=== PATIENT | female | born 1960 | race Caucasian/White ===

== ENCOUNTER 2018-08-05 10:00 | Outpatient (RCR) ==
[2016-04-17 17:40] VITALS: BMI 41.5
== END 2018-08-15 23:59 ==
PROVIDERS: ATTEND Orthopaedic Surgery
DX: S52.502D Unspecified fracture of the lower end of left radius, subsequent encounter for closed fracture with routine healing (principal); M25.532 Pain in left wrist; M25.632 Stiffness of left wrist, not elsewhere classified; R53.1 Weakness; M25.432 Effusion, left wrist; Z98.890 Other specified postprocedural states

== ENCOUNTER 2018-09-08 08:00 | Outpatient (RCR) ==
[2016-04-17 17:40] VITALS: BMI 41.5
--- NOTE | 2018-08-24 11:49 | RS.OPPTEV2 ---
Date of Note: 08/23/18 Visit #: 1 Number of visits approved by Insurance: n/a Date of Evaluation: 08/23/18 Payer Source: MEDICARE Surgery Performed?: No Treatment Diagnosis: low back pain with radiculopathy History of Condition/Mechanism of Injury:: pt states that she has had a long hx of LBP which began in 2007. Prior Level of Function.....Patient was independent with: Work/Vocation, Caregiving, Ambulation/Mobility, Community Integration/Access Functional Limitations: Sleep, Lifting, Carrying, Standing, Bending, Squatting, Ambulation, Community Access/Integration Current Subjective/complaints:: pt states that she wants to avoid surgery on her back if at all possible. She reports she had an exacerbation of the LBP in Jun 2018 and is hurting pretty much constantly. Treatment Side (optional): N/A *Precautions: no electrical modalities due to h/o breast CA Medical History Medical History: Arthritis, Cancer (breast) Medical History Comments:: fibromyalgia Surgical History: Knee Replacement (BTKR), Cervical Spine (C6-7 fusion), Cholecystectomy, Hysterectomy, Mastectomy (Bilateral) Surgical History Comments:: Bilateral breast mastectomies Smoking Status: Never smoker Hx Home Medications: Zanaflex, Cymbalta,synthroid, gabapentin Patient's Goals: decrease LBP Pain Assessment - Pain Description Pain Location: lumbar area radiating into BLE to knees. Pain Description: Burning, Radiating, Aching Current Pain Intensity: 4-5/10 Worst Pain Intensity: 8/10 Functional Outcome Measure Oswestry LBP: 27 - G Codes & Severity Modifier G Codes & Modifier: n/a Source of G Code score: n/a Observation - Observation Inspection: pt with tightness in R piriformis Posture: Forward Head, Rounded Shoulders, Decreased Lumbar Lordosis Gait - Gait Pattern General Gait Pattern Observation: No Deviations/Normal General Range of Motion: WFL's except R wrist limited. Muscle Strength: LUE 5/5, RUE shld flex 5/5, elbow flex/ext 4/5, wrist limited. BLE hip flex 4+/5, knee flex/ext 5/5, ankle DF/PF 5/5 - ROM Lumbar Flexion: Hand reach to patellae Sidebending to Left: Reach to Lateral Joint Line Sidebending to Right: Reach to Lateral Joint Line Lumbar Spine ROM Limitations: Soft Tissue Tightness, Muscle Weakness, Pain Comments: pt with pain with flex as well as sidebending worse on L, extension decreases pain - Strength Trunk Extension: 4 Good Trunk Flexion: 4- Good- Trunk Lateral Flexion: 4- Good- Trunk Rotation: 4- Good- - Special Tests SLR Test: Positive Left, Positive Right Seated Dural Stretch Test: Positive Left, Positive Right SI Joint Compression: Positive Palpation Palpation Findings: Tenderness, Trigger Point, Muscle Guarding Comments:: pt with tenderness to palpation in lumbosacral area with trigger point and muscle guarding noted in area of R SI joint Sensation - Sensation Right Upper Extremity: Intact/Normal Left Upper Extremity: Intact/Normal Right Lower Extremity: Impaired Left Lower Extremity: Impaired Comments: pt reports burning and pain to B knees Balance - Sitting Balance Static Sitting Balance: Normal Dynamic Sitting Balance: Normal - Standing Balance Static Standing Balance: Normal Dynamic Standing Balance: Normal - Heat/Cryotherapy Treatment: Hot Pack Comments:: lumbar area Interventions - Exercise/Activities/Manual Therapy Exercises/Activities: pt performed pelvic tilts, prone on elbows, piriformis stretch, isometric hip add, standing lumbar ext. Total minutes of Exercise: 16 Manual Therapy: n/a HOME EXERCISE PROGRAM: pt given written HEP including putty, wrist flex/ext, pronation /supination, Passive stretching, stress ball, rubber band resisted finger extension. - Charges Timed Code Treatment Minutes: 52 Total Treatment Time: 59 Procedures billed for this date of service:: eval med, ex EVALUATION COMPLEXITY LEVEL EVALUATION COMPLEXITY LEVEL: HISTORY: Medium (fibromyalgia, back pain, OA, CA, ) , EXAM OF BODY SYSTEMS: Medium (pain, strength, ROM), CLINICAL PRESENTATION: Medium, CLINICAL DECISION MAKING: Medium Assessment Assessment: pt presents with LBP especially in area of R SI. pt with radicular symptoms BLE to knees which are decreased by lying in prone position. pt with muscle tightness noted in R piriformis. Patient Education: Home Exercise Program, Education of Plan of Care Rehab Potential: Good Short Term Goals Goal #1: pt independent with initial HEP Goal to be met by: 09/13/18 Goal #2: pt with decreased pain rated at <4/10 Goal to be met by: 09/13/18 Goal #3: R piriformis flexibility improved to equal to L Goal to be met by: 09/13/18 Goal #4: pt report decrease in frequency of radicular symptoms. Goal to be met by: 09/13/18 Longterm Goals Goal #1: Improvement in Oswestry score to <20 Goal to be met by: 10/04/18 Goal #2: Score on UE functional score >55 Goal to be met by: 10/04/18 Goal #3: pt report decreased LBP<3/10 Goal to be met by: 10/04/18 Goal #4: pt with reports of radicular symptoms less often than daily Goal to be met by: 10/04/18 Plan - Treatment to be Provided Procedures: Therapeutic Exercises, Manual Therapy, Massage, Patient Education Modalities: Cryotherapy, Hot Packs, Mechanical Traction - Treatment Plan Frequency: 2-3x a week Duration: 6 weeks Dates of Longterm Goals: 10/04/18 Expiration date of current Insurance Approval:: n/a - Treatment Code (1) Low back pain Code(s): M54.5 - LOW BACK PAIN Qualifiers: Chronicity: chronic Back pain laterality: bilateral Sciatica presence: with sciatica Sciatica laterality: bilateral sciatica Qualified Code(s): M54.42 - Lumbago with sciatica, left side; M54.41 - Lumbago with sciatica, right side; G89.29 - Other chronic pain (2) Radiculopathy of lumbar region Code(s): M54.16 - RADICULOPATHY, LUMBAR REGION (3) Muscle tightness Code(s): M62.89 - OTHER SPECIFIED DISORDERS OF MUSCLE (4) Weakness Code(s): R53.1 - WEAKNESS
--- NOTE | 2018-08-25 09:16 | RS.OPPTDN ---
Subjective Date of Note: 08/25/18 Visit #: 2 Number of visits approved by Insurance: NA Date of Evaluation: 08/23/18 Payer Source: MEDICARE Treatment Diagnosis: low back pain with radiculopathy Current Subjective/complaints:: Patient reports moderate pain , currently, radiating into both LE"s. *Precautions: no electrical modalities due to h/o breast CA Pain Assessment - Pain Description Pain Location: lumbar,both LE's Pain Description: Radiating, Dull, Aching Current Pain Intensity: 4-5/10 - Heat/Cryotherapy Treatment: Hot Pack (20 mins. prior to exercises) Interventions - Exercise/Activities/Manual Therapy Exercises/Activities: 35 mins. total pelvic tilts, SKTC,DKTC,piriformis stretches,LTR in hooklying,90/90 hamstring stretches. Total minutes of Exercise: 35 Manual Therapy: n/a Total minutes of Manual Therapy: 0 HOME EXERCISE PROGRAM: pelvic tilts,prone on elbows,SKTC,DKTC,piriformis stretches,lower trunk rotation in hooklying. - Charges Timed Code Treatment Minutes: 35 Total Treatment Time: 55 Procedures billed for this date of service:: hp,ex 2 Assessment: Patient has good hamstring extensibility bilaterally,moderate R piriformis tightness present,reports relief after exercises today.She is attentive to recommendations regarding her care. Patient Education: Education of diagnosis, Body/Joint mechanics, Home Exercise Program, Home Safety, Activity Modification, Education of Plan of Care Patient demonstrates compliance with HEP?: Yes Short Term Goals Goal #1: pt independent with initial HEP Goal to be met by: 09/13/18 Progress towards Goal:: Progressing Goal #2: pt with decreased pain rated at <4/10 Goal to be met by: 09/13/18 Goal #3: R piriformis flexibility improved to equal to L Goal to be met by: 09/13/18 Goal #4: pt report decrease in frequency of radicular symptoms. Goal to be met by: 09/13/18 [facility]pc Goals Goal #1: Improvement in Oswestry score to <20 Goal to be met by: 10/04/18 Goal #2: Score on UE functional score >55 Goal to be met by: 10/04/18 Goal #3: pt report decreased LBP<3/10 Goal to be met by: 02/19/19 Goal #4: pt with reports of radicular symptoms less often than daily Goal to be met by: 10/04/18 Plan Dates of [facility] Goals: 10/04/18 Expiration date of current Insurance Approval:: NA PLAN: Cont. skilled PT to reduce /eliminate LBP and sciatica.
--- NOTE | 2018-08-30 10:00 | RS.OPPTDN ---
Subjective Date of Note: 08/30/18 Visit #: 3 Number of visits approved by Insurance: NA Date of Evaluation: 08/23/18 Payer Source: MEDICARE Treatment Diagnosis: low back pain with radiculopathy Current Subjective/complaints:: Patient reports the pain is in the low back only today,no radiating pain present. *Precautions: no electrical modalities due to h/o breast CA Pain Assessment - Pain Description Pain Location: lumbar Pain Description: Dull, Aching Current Pain Intensity: 3/10 Worst Pain Intensity: 5/10 Other Comments regarding Pain:: occasionally has sharp pain ,dependent upon the task - Heat/Cryotherapy Treatment: Hot Pack (20 mins. prior to exercises) Interventions - Exercise/Activities/Manual Therapy Exercises/Activities: 30 mins. total ,including 2/20 alternating hip flexion in hooklying,then 4 point quads with 4 # resistance,HEP review for supine and prone.Instructed today in short range abdominal crunches , then postural pullbacks with yellow theraband ( has green t-band at home) at 3 different angles . Total minutes of Exercise: 30 Manual Therapy: n/a Total minutes of Manual Therapy: 0 HOME EXERCISE PROGRAM: pelvic tilts,prone on elbows,SKTC,DKTC,piriformis stretches,lower trunk rotation in hooklying.Postural pullbacks with theraband. - Charges Timed Code Treatment Minutes: 30 Total Treatment Time: 50 Procedures billed for this date of service:: hp,ex 2 Assessment: Patient has no increase in back pain with resistive exercises today.She has better control of eccentric motions,along with good return demo of theraband exercises.She is attentive and motivated to improve. Patient Education: Education of diagnosis, Body/Joint mechanics, Home Exercise Program, Home Safety, Activity Modification, Education of Plan of Care Patient demonstrates compliance with HEP?: Yes Short Term Goals Goal #1: pt independent with initial HEP Goal to be met by: 09/13/18 Progress towards Goal:: Progressing Goal #2: pt with decreased pain rated at <4/10 Goal to be met by: 09/13/18 (3/10 currently) Progress towards Goal:: Progressing Goal #3: R piriformis flexibility improved to equal to L Goal to be met by: 09/13/18 Progress towards Goal:: Progressing Goal #4: pt report decrease in frequency of radicular symptoms. Goal to be met by: 09/13/18 (none this morning) Progress towards Goal:: Progressing Senior Water Resources Engineer Goals Goal #1: Improvement in Oswestry score to <20 Goal to be met by: 10/04/18 Goal #2: Score on UE functional score >55 Goal to be met by: 10/04/18 Goal #3: pt report decreased LBP<3/10 Goal to be met by: 10/04/18 Goal #4: pt with reports of radicular symptoms less often than daily Goal to be met by: 10/04/18 Plan Dates of Senior Water Resources Engineer Goals: 10/04/18 Expiration date of current Insurance Approval:: NA PLAN: Cont. skilled PT to reduce /elminate LBP.
--- NOTE | 2018-09-01 09:05 | RS.OPPTDN ---
Subjective Date of Note: 09/01/18 Visit #: 4 Number of visits approved by Insurance: NA Date of Evaluation: 08/23/18 Payer Source: MEDICARE Treatment Diagnosis: low back pain with radiculopathy Current Subjective/complaints:: Patient motivated,report going to [employer] and buying exercise tubing and 5# cuff weights. *Precautions: no electrical modalities due to h/o breast CA Pain Assessment - Pain Description Pain Location: lumbar Pain Description: Dull, Aching Current Pain Intensity: 2 Other Comments regarding Pain:: no sciatica today - Heat/Cryotherapy Treatment: Hot Pack (20 mins. prior to exercises) Interventions - Exercise/Activities/Manual Therapy Exercises/Activities: 30 mins. total ,including 2/20 alternating hip flexion in hooklying,then 4 point quads with 4 # resistance,prone hams. curls with 4#.2/10 abdominal crunches in short ROM. Total minutes of Exercise: 30 Manual Therapy: n/a Total minutes of Manual Therapy: 0 HOME EXERCISE PROGRAM: pelvic tilts,prone on elbows,SKTC,DKTC,piriformis stretches,lower trunk rotation in hooklying.Postural pullbacks with theraband. - Charges Timed Code Treatment Minutes: 30 Total Treatment Time: 50 Procedures billed for this date of service:: hp,ex 2 Assessment: Progressing well,has decreased LBP this mornng.She has good hamstring extensibility bilaterally.She has no elevation of pain with exercises today. Patient Education: Education of diagnosis, Body/Joint mechanics, Home Exercise Program, Home Safety, Activity Modification, Education of Plan of Care Patient demonstrates compliance with HEP?: Yes Short Term Goals Goal #1: pt independent with initial HEP Goal to be met by: 09/13/18 Progress towards Goal:: Progressing Goal #2: pt with decreased pain rated at <4/10 Goal to be met by: 09/13/18 (3/10 currently) Progress towards Goal:: Partially Met (2 today ,but not yet consistent) Goal #3: R piriformis flexibility improved to equal to L Goal to be met by: 09/13/18 Progress towards Goal:: Progressing Goal #4: pt report decrease in frequency of radicular symptoms. Goal to be met by: 09/13/18 (none this morning) Progress towards Goal:: Progressing Prison Goals Goal #1: Improvement in Oswestry score to <20 Goal to be met by: 10/04/18 Goal #2: Score on UE functional score >55 Goal to be met by: 10/04/18 Goal #3: pt report decreased LBP<3/10 Goal to be met by: 10/04/18 Progress towards goal: Progressing Goal #4: pt with reports of radicular symptoms less often than daily Goal to be met by: 10/04/18 Progress towards goal: Progressing Plan Dates of Tissue Technician Goals: 10/04/18 Expiration date of current Insurance Approval:: NA PLAN: Cont. skilled PT to reduce/eliminate back pain.
--- NOTE | 2018-09-05 08:55 | RS.OPPTDN ---
Subjective Date of Note: 09/05/18 Visit #: 5 Number of visits approved by Insurance: NA Date of Evaluation: 08/23/18 Payer Source: MEDICARE Treatment Diagnosis: low back pain with radiculopathy Current Subjective/complaints:: Patient reports dull ache only this morning in the low back,no pain into the LE's. *Precautions: no electrical modalities due to h/o breast CA Pain Assessment - Pain Description Pain Location: lumbar Pain Description: Dull, Aching Pain Description: mnimal Current Pain Intensity: not rated - Heat/Cryotherapy Treatment: Hot Pack (20 mins. prior to exercises) Interventions - Exercise/Activities/Manual Therapy Exercises/Activities: 30 mins. total ,including 3/15 alternating hip flexion in hooklying with 4#,then SLR's ,3/10 with 4 #.Progressed to bilateral leg press , 1 set of 15 @ 75#,then 3 /15 reps. @ 105#. Total minutes of Exercise: 30 Manual Therapy: n/a Total minutes of Manual Therapy: 0 HOME EXERCISE PROGRAM: pelvic tilts,prone on elbows,SKTC,DKTC,piriformis stretches,lower trunk rotation in hooklying.Postural pullbacks with theraband. - Charges Timed Code Treatment Minutes: 30 Total Treatment Time: 50 Procedures billed for this date of service:: hp,ex 2 Assessment: Progressing well,has increased strength in core/LE's .She has report of fatigue only with resistive exercises,no back pain elevation today. Patient Education: Education of diagnosis, Body/Joint mechanics, Home Exercise Program, Home Safety, Activity Modification, Education of Plan of Care Patient demonstrates compliance with HEP?: Yes Short Term Goals Goal #1: pt independent with initial HEP Goal to be met by: 09/13/18 Progress towards Goal:: Progressing Goal #2: pt with decreased pain rated at <4/10 Goal to be met by: 09/13/18 Progress towards Goal:: Met (2 today ,but not yet consistent) Goal #3: R piriformis flexibility improved to equal to L Goal to be met by: 09/13/18 Progress towards Goal:: Progressing Goal #4: pt report decrease in frequency of radicular symptoms. Goal to be met by: 09/13/18 (none today) Progress towards Goal:: Progressing Cane Loader Goals Goal #1: Improvement in Oswestry score to <20 Goal to be met by: 10/04/18 Goal #2: Score on UE functional score >55 Goal to be met by: 10/04/18 Goal #3: pt report decreased LBP<3/10 Goal to be met by: 10/04/18 Progress towards goal: Progressing Goal #4: pt with reports of radicular symptoms less often than daily Goal to be met by: 10/04/18 Progress towards goal: Progressing Plan Dates of Cane Loader Goals: 10/04/18 Expiration date of current Insurance Approval:: NA PLAN: Cont. skilled PT to reduce/eliminate LBP,return to all ADL's comfortably.
--- NOTE | 2018-09-08 09:17 | RS.OPPTDN ---
Subjective Date of Note: 09/08/18 Visit #: 6 Number of visits approved by Insurance: NA Date of Evaluation: 08/23/18 Payer Source: MEDICARE Treatment Diagnosis: low back pain with radiculopathy Current Subjective/complaints:: Reports feeling better overall since beginning therapy,continues to loja her HEP often. *Precautions: no electrical modalities due to h/o breast CA Pain Assessment - Pain Description Pain Location: lumbar Pain Description: Dull, Aching, Chronic Pain Description: 3 - Heat/Cryotherapy Treatment: Hot Pack (20 mins. prior to exercises) Interventions - Exercise/Activities/Manual Therapy Exercises/Activities: 30 mins. total ,including 3/15 alternating hip flexion in hooklying with 4#,then SLR's ,3/10 with 4 #.Progressed to bilateral leg press , 1 set of 15 @ 90#,then 3 /15 reps. @ 105#.3/15 standing mini-squats with therapy ball behind her back. Total minutes of Exercise: 30 Manual Therapy: n/a Total minutes of Manual Therapy: 0 HOME EXERCISE PROGRAM: pelvic tilts,prone on elbows,SKTC,DKTC,piriformis stretches,lower trunk rotation in hooklying.Postural pullbacks with theraband. - Charges Timed Code Treatment Minutes: 30 Total Treatment Time: 50 Procedures billed for this date of service:: hp,ex 2 Assessment: Patient progressing well,has less intensity /less frequency/less duration of LBP.She is highly motivated to improve ,does her HEP regularly. Patient Education: Education of diagnosis, Body/Joint mechanics, Home Exercise Program, Home Safety, Activity Modification, Education of Plan of Care Patient demonstrates compliance with HEP?: Yes Short Term Goals Goal #1: pt independent with initial HEP Goal to be met by: 09/13/18 Progress towards Goal:: Met Goal #2: pt with decreased pain rated at <4/10 Goal to be met by: 09/13/18 Progress towards Goal:: Met (2 today ,but not yet consistent) Goal #3: R piriformis flexibility improved to equal to L Goal to be met by: 09/13/18 Progress towards Goal:: Progressing Goal #4: pt report decrease in frequency of radicular symptoms. Goal to be met by: 09/13/18 (reports intermittent pain in L LE this AM) Progress towards Goal:: Progressing Retail Administrative Assistant Goals Goal #1: Improvement in Oswestry score to <20 Goal to be met by: 10/04/18 Goal #2: Score on UE functional score >55 Goal to be met by: 10/04/18 Goal #3: pt report decreased LBP<3/10 Goal to be met by: 10/04/18 Progress towards goal: Progressing Goal #4: pt with reports of radicular symptoms less often than daily Goal to be met by: 10/04/18 Progress towards goal: Met Plan Dates of [facility] Goals: 10/04/18 Expiration date of current Insurance Approval:: NA PLAN: Cont skilled PT to maximize core and LE strength,reducing /elimnating back pain.
--- NOTE | 2018-09-15 08:19 | RS.CXNS ---
Date of scheduled appointment: 09/15/18 Type: Rescheduled (Called and re-scheduled for tomorrow,has sick grandchild today.)
== END 2018-09-15 23:59 | disposition short-term general hospital (02) ==
PROVIDERS: ATTEND Physician Assistant Medical
DX: M54.42 Lumbago with sciatica, left side (principal); M54.41 Lumbago with sciatica, right side; G89.29 Other chronic pain; M54.16 Radiculopathy, lumbar region; R53.1 Weakness

== ENCOUNTER 2018-09-22 14:00 | Outpatient (RCR) ==
[2016-04-17 17:40] VITALS: BMI 41.5
--- NOTE | 2018-09-16 12:04 | RS.OPPTDN ---
Subjective Date of Note: 09/16/18 Visit #: 7 Number of visits approved by Insurance: NA Date of Evaluation: 08/23/18 Payer Source: MEDICARE Treatment Diagnosis: low back pain with radiculopathy Current Subjective/complaints:: Patient reports she is improving ,continues to be very pro-active regarding her health,doing HEP consistently. *Precautions: no electrical modalities due to h/o breast CA Pain Assessment - Pain Description Pain Location: lumbar Pain Description: Dull, Aching Current Pain Intensity: not rated - Heat/Cryotherapy Treatment: Hot Pack (20 mins. prior to exercises) Interventions - Exercise/Activities/Manual Therapy Exercises/Activities: 30 mins. total ,including 3/15 alternating hip flexion in hooklying with 4#,then SLR's ,3/10 with 4 #.Progressed to bilateral leg press , 1 set of 15 @ 90#,then 1/15 reps. each @ 105#,120#,135#.Standng alternating UE/ LE extension leaning with therapy ball against abdomen. Total minutes of Exercise: 30 Manual Therapy: n/a Total minutes of Manual Therapy: 0 HOME EXERCISE PROGRAM: pelvic tilts,prone on elbows,SKTC,DKTC,piriformis stretches,lower trunk rotation in hooklying.Postural pullbacks with theraband. - Charges Timed Code Treatment Minutes: 30 Total Treatment Time: 50 Procedures billed for this date of service:: ex 3 Assessment: Patient reports her lumbar pain is less intense ,less frequent with ADL's.She has increased strength in core and LE's.She continues to be highly motivated and compliant to HEP. Patient Education: Education of diagnosis, Body/Joint mechanics, Home Exercise Program, Home Safety, Activity Modification, Education of Plan of Care Patient demonstrates compliance with HEP?: Yes Short Term Goals Goal #1: pt independent with initial HEP Goal to be met by: 09/13/18 Progress towards Goal:: Met Goal #2: pt with decreased pain rated at <4/10 Goal to be met by: 09/13/18 Progress towards Goal:: Met (2 today ,but not yet consistent) Goal #3: R piriformis flexibility improved to equal to L Goal to be met by: 09/13/18 Progress towards Goal:: Progressing Goal #4: pt report decrease in frequency of radicular symptoms. Goal to be met by: 09/13/18 Progress towards Goal:: Partially Met (Intermittent ,dependent upon how long she is on her feet) Mail Truck Driver Goals Goal #1: Improvement in Oswestry score to <20 Goal to be met by: 10/04/18 Progress towards goal: Progressing Goal to be met by: 10/04/18 Goal #3: pt report decreased LBP<3/10 Goal to be met by: 10/04/18 Progress towards goal: Met Goal #4: pt with reports of radicular symptoms less often than daily Goal to be met by: 10/04/18 Progress towards goal: Met Plan Dates of Mail Truck Driver Goals: 10/04/18 Expiration date of current Insurance Approval:: NA PLAN: Continue skilled PT to return to PLOF,initiate the D/C plan as she approaches rehab goals.
--- NOTE | 2018-09-20 09:07 | RS.OPPTDN ---
Subjective Date of Note: 09/20/18 Visit #: 8 Number of visits approved by Insurance: NA Date of Evaluation: 08/23/18 Payer Source: MEDICARE Treatment Diagnosis: low back pain with radiculopathy Current Subjective/complaints:: Patient reports dull aching in her back currently,due to rainy weather.She continues to do er HEP. *Precautions: no electrical modalities due to h/o breast CA Pain Assessment - Pain Description Pain Location: lumbar Pain Description: Aching Pain Description: minimal Current Pain Intensity: 0 at rest - Heat/Cryotherapy Treatment: Hot Pack (20 mins. prior to exercises) Interventions - Exercise/Activities/Manual Therapy Exercises/Activities: 30 mins. total ,including postural pullbacks with black theraband,leg press @ 120 for 10/28.HEP review. Total minutes of Exercise: 30 Manual Therapy: n/a Total minutes of Manual Therapy: 0 HOME EXERCISE PROGRAM: pelvic tilts,prone on elbows,SKTC,DKTC,piriformis stretches,lower trunk rotation in hooklying.Postural pullbacks with theraband. - Charges Timed Code Treatment Minutes: 30 Total Treatment Time: 50 Procedures billed for this date of service:: hp ,ex 2 Assessment: Progressing well in all areas,discussed the D/C plan after next session.She has less intensity of back pain ,also less frequent. Patient Education: Education of diagnosis, Body/Joint mechanics, Home Exercise Program, Home Safety, Activity Modification, Education of Plan of Care Patient demonstrates compliance with HEP?: Yes Short Term Goals Goal #1: pt independent with initial HEP Goal to be met by: 09/13/18 Progress towards Goal:: Met Goal #2: pt with decreased pain rated at <4/10 Goal to be met by: 09/13/18 Progress towards Goal:: Met (2 today ,but not yet consistent) Goal #3: R piriformis flexibility improved to equal to L Goal to be met by: 09/13/18 Progress towards Goal:: Met Goal #4: pt report decrease in frequency of radicular symptoms. Goal to be met by: 09/13/18 Progress towards Goal:: Met Spinning Lathe Operator Goals Goal #1: Improvement in Oswestry score to <20 Goal to be met by: 10/04/18 Progress towards goal: Progressing Goal to be met by: 10/04/18 Goal #3: pt report decreased LBP<3/10 Goal to be met by: 10/04/18 Progress towards goal: Met Goal #4: pt with reports of radicular symptoms less often than daily Goal to be met by: 10/04/18 Progress towards goal: Met Plan Dates of Spinning Lathe Operator Goals: 10/04/18 Expiration date of current Insurance Approval:: NA PLAN: Cont PT one more session ,plan to D/C due to good progress.
--- NOTE | 2018-09-22 14:52 | RS.OPPTDN ---
Subjective Date of Note: 09/22/18 Visit #: 9 Number of visits approved by Insurance: NA Date of Evaluation: 08/23/18 Payer Source: MEDICARE Treatment Diagnosis: low back pain with radiculopathy Current Subjective/complaints:: Patient reports doing well,slight aching today due to rainy weather. *Precautions: no electrical modalities due to h/o breast CA Pain Assessment - Pain Description Pain Location: lumbar when present Pain Description: Dull, Aching, Chronic Current Pain Intensity: 0 - Heat/Cryotherapy Treatment: Hot Pack (20 mins. prior to exercises) Interventions - Exercise/Activities/Manual Therapy Exercises/Activities: 30 mins. total ,including postural pullbacks with black theraband,leg press @ 120 for 10/28.HEP review. Total minutes of Exercise: 30 Manual Therapy: n/a HOME EXERCISE PROGRAM: pelvic tilts,prone on elbows,SKTC,DKTC,piriformis stretches,lower trunk rotation in hooklying.Postural pullbacks with theraband. - Charges Timed Code Treatment Minutes: 30 Total Treatment Time: 50 Procedures billed for this date of service:: hp,ex 2 Assessment: Patient progressed well,met all rehab goals .She has exercise equipment at home ,is pro-active regarding her health.She is aware of D/C plan today due to good progress. Patient Education: Education of diagnosis, Body/Joint mechanics, Home Exercise Program, Home Safety, Activity Modification, Education of Plan of Care Patient demonstrates compliance with HEP?: Yes Short Term Goals Goal #1: pt independent with initial HEP Goal to be met by: 09/13/18 Progress towards Goal:: Met Goal #2: pt with decreased pain rated at <4/10 Goal to be met by: 09/13/18 Progress towards Goal:: Met (2 today ,but not yet consistent) Goal #3: R piriformis flexibility improved to equal to L Goal to be met by: 09/13/18 Progress towards Goal:: Met Goal #4: pt report decrease in frequency of radicular symptoms. Goal to be met by: 09/13/18 Progress towards Goal:: Met Sales Department Clerk Goals Goal #1: Improvement in Oswestry score to <20 Goal to be met by: 10/04/18 (14) Progress towards goal: Met Goal to be met by: 10/04/18 Goal #3: pt report decreased LBP<3/10 Goal to be met by: 10/04/18 Progress towards goal: Met Goal #4: pt with reports of radicular symptoms less often than daily Goal to be met by: 10/04/18 Progress towards goal: Met Plan Dates of Residential Goals: 10/04/18 Expiration date of current Insurance Approval:: NA PLAN: D/C
--- NOTE | 2018-09-23 08:45 | RS.OPPTDC ---
Date of Discharge: 09/22/18 Date of Evaluation: 08/23/18 Number of Visits: 9 Treatment Diagnosis: low back pain with radiculopathy Current Level of Function: pt pain 0/10, Independent with HEP, pt with improved flexibility in B piriformis and hamstrings, no radicular pain noted. Current Complaints/Gains: pt is compliant with HEP. She has purchased exercise bands, therapy ball, and cuff weights to continue therapy after DC. Functional Outcome Measure Oswestry LBP: 14 - G Codes & Severity Modifier G Codes & Modifier: n/a Source of G Code score: n/a Observation - Observation Posture: Forward Head, Rounded Shoulders Gait - Gait Pattern General Gait Pattern Observation: No Deviations/Normal Interventions - Exercise/Activities/Manual Therapy Exercises/Activities: n/a Manual Therapy: n/a HOME EXERCISE PROGRAM: pelvic tilts,prone on elbows,SKTC,DKTC,piriformis stretches,lower trunk rotation in hooklying.Postural pullbacks with theraband. - Charges Timed Code Treatment Minutes: n/a Total Treatment Time: n/a Procedures billed for this date of service:: n/a Assessment Assessment: pt has met all goals. pt made improvement with decreased pain as well as improved flexibility and strength. Patient Education: Home Exercise Program, Education of Plan of Care Rehab Potential: Good Short Term Goals Goal #1: pt independent with initial HEP Goal to be met by: 09/13/18 Progress towards Goal:: Met Goal #2: pt with decreased pain rated at <4/10 Goal to be met by: 09/13/18 Progress towards Goal:: Met (2 today ,but not yet consistent) Goal #3: R piriformis flexibility improved to equal to L Goal to be met by: 09/13/18 Progress towards Goal:: Met Goal #4: pt report decrease in frequency of radicular symptoms. Goal to be met by: 09/13/18 Progress towards Goal:: Met Senior Care Goals Goal #1: Improvement in Oswestry score to <20 Goal to be met by: 10/04/18 (14) Progress towards goal: Met Goal to be met by: 10/04/18 Goal #3: pt report decreased LBP<3/10 Goal to be met by: 10/04/18 Progress towards goal: Met Goal #4: pt with reports of radicular symptoms less often than daily Goal to be met by: 10/04/18 Progress towards goal: Met Plan Reason for Discharge:: All Goals Met
== END 2018-10-13 23:59 ==
PROVIDERS: ATTEND Physician Assistant Medical
DX: M54.5 Low back pain (principal); M54.16 Radiculopathy, lumbar region